=== PATIENT | female | born 1950 | race Caucasian/White ===

== ENCOUNTER 2020-04-04 14:47 | Inpatient (IN) | payer MEDICARE ==
[~2020-04-04] VITALS: Ht 157.5 cm; Wt 63.1 kg
--- NOTE | ~2020-04-04 | EMS ---
[address] [place] [address] EMS Patient Care Report Name: PRAVEEN FERRELL Room: [place] [address] ADM IN [facility]#: [id number] Admission: 04/04/20 Attend Phys: Lawrence Petty Discharge: Date of : 48 Report #: [id number] THIS REPORT FOR: //name// Report Transmitted: 04/04/2020 18:39 EMS Care Summary [facility] Incident [id number] @ 04/04/2020 13:51 Incident Location [address] [place] [address] Patient Praveen Ferrell Female, 69 Years 1950 Patient Address [id number] [place] [address] Patient History Chronic Kidney Disease,Anemia, unspecified, Patient Allergies No known allergies, Patient Medications Lipitor, Chief Complaint Pain Disposition Transported No Lights/[place] Dispatch Reason Falls Transported To [facility] Narrative [facility] 311 dispatched from [facility] for a fall. AOS, IFD on scene outside the residence. Patient contact had not been made. Garage code provided to IFD was not working. IFD even changed the battery on code box with no change. Front door was locked with a back door noted and locked. Windows were [address] [address] EMS Patient Care Report Name: PRAVEEN FERRELL Room: [address] IN [facility]#: [id number] Admission: 04/04/20 Attend Phys: aLwrence Petty Discharge: Date of : 48 Report #: [id number] surveyed with no accessible entry and inability to remove screen door from windows. EMS surveyed the area and peered inside the residence with no patient noted from the outside. Through looking through the windows, residence was noted to be unkempt with clutter and boxes piled to all window levels and no clear path. Delay on scene due to lockout. IFD was able to make entry into residence via removing the door knob and using special tools to unlock the bolt from the outside by going through the removed knob. Once entry was made, patient contact was made. Upon patient contact, patient was noted to be on the floor on her right lateral side, wedged between the bed and a large pile of clutter. Clutter went from wall to wall and almost to the ceiling leaving approximately 1 foot of space between the bed and clutter in room; this was the location of the patient wedged in that 1 foot of space. Patient reported passing out when she stood up from the bed to go to the bathroom and unable to get back up. Patient denied hitting her head and denied being on blood thinners at this time. Patient reported tailbone pain at a 5 and described as dull without radiation, numbness, tingling. Patient was attempted to be assisted to sit from location with patient LE to be noted to be stuck under the bed. Patient LE was repositioned as best as possible with difficulty due to limited space and clutter. Once repositioned, patient was assisted to transfer from right lateral position to sit to stand. Megamover was placed on the bed to aid in transferring patient to the cot outside. Patient was assisted to sit back on the bed once MEgamover was placed. Due to condition of house and limited space, all assessments were decided to be done outside the residence. Due to no clear pathways in the residence with cat feces noted throughout the residence floor. Patient location was in the upstairs bedroom; concern for patient and EMS safety if stairchair was used due to stairs disintegrating. It was decided to move patient via Megamover. Patient was moved via Megamover down the steps with edge of steps noted to be crumbling under EMS feet. Once outside the residence and to the cot, Megamover with patient was placed on the cot; seatbelts x4 were applied for patient safety. Patient had personal belongings of a bag that was placed on the back of the cot. Cot was moved to the unit where it was loaded and locked. In unit, initial vitals as charted with 4 lead showing possible elevation. Due to report of syncope and 4 lead, 12 lead was done showing sinus tachycardia with need to repeat due to artifact. Further information was obtained. Patient reported that she had been having syncopal episodes for 2 years and stated it was attributed to low BP. Patient reported her normal bP to be around 90 systolic. Patient reported she used to take warfarin but stopped last week per doctor order. Patient reported that she is supposed to have daily "saline infusions for dehydration" but stated that she had not had one in over a week. Per patient, [facility]NA was to do them but came out "once and never came back". Per patient, she stated that the reason she was told was the "condition of the house". Patient refused IV access. Patient medications and medical history was reviewed with patient. Patient initially requested transport to [place] and then [facility] with both facilities being high volume. EMS advised patient of implications of high volume status and patient agreed to transport to a different facility. Transport initiated. En route, patient [facility] [address] [place] [address] EMS Patient Care Report Name: PRAVEEN FERRELL Room: [address] IN [facility]#: [id number] Admission: 04/04/20 Attend Phys: Lawrence Petty Discharge: Date of : 48 Report #: [id number] vitals were monitored as charted. Patient had no noted change of condition and denied onset of new symptoms en route. patient denied change in current symptoms and denied change in pain quality, rate, or location. Patient comfort was attended to with position and temperature changes as requested. At destination, patient was removed from the monitor due to stability. Sole Molder Halina witnessed patient sign EMS consent to transport and treat. Cot was unlocked, unloaded, and moved to the ER. In ER, patient was transferred from EMS cot to hospital bed. Patient personal belongings of a bag was placed on side table with patient acknowledgement. Verbal report was given. Transfer of care complete. Initial Vitals @14:43Pain: 08/12, @14:18Pain: 08/12, @14:22SpO2: 96, @14:34SpO2: 96, @14:43SpO2: 96, @14:24 @14:25 @14:22P: 105,R: 16,BP: 108/72,Revised Trauma: 8, @14:34P: 101,R: 16,BP: 86/55,Revised Trauma: 7, @14:43P: 95,R: 16,BP: 94/61,Revised Trauma: 8, @14:22GCS: 15, @14:34GCS: 15, @14:43GCS: 15, @14:16 @14:26Glucose: 189, Assessments @14:16MENTAL:SKIN:HEENT:LUNG SOUNDS:ABDOMEN:PELVIS//GI:EXTREMITIES:PULSE:NEURO: Impression Syncope / Fainting Procedures @14:2412-Lead ECGResponse: UnchangedSucceeded@14:2512-Lead ECGResponse: UnchangedSucceeded Timeline 13:51,Call Received 13:51,Dispatch Notified 13:51,Psap Call 13:51,Dispatched 13:51,En Route 14:01,[place] [address] EMS Patient Care Report Name: PRAVEEN FERRELL Harjit Room: [address] IN [facility]#: [id number] Admission: 04/04/20 Attend Phys: Lawrence Petty Discharge: Date of : 48 Report #: [id number] 14:16,At Patient 14:16,BP: / M,PULSE: ,RR: R,SPO2: Ox,ETCO2: ,BG: ,PAIN: ,GCS: , 14:18,BP: / M,PULSE: ,RR: R,SPO2: Ox,ETCO2: ,BG: ,PAIN: 5,GCS: , 14:22,BP: / M,PULSE: ,RR: R,SPO2: 96 Ox,ETCO2: ,BG: ,PAIN: ,GCS: , 14:22,BP: 108/72 M,PULSE: 105,RR: 16 R,SPO2: Ox,ETCO2: ,BG: ,PAIN: ,GCS: , 14:22,BP: / M,PULSE: ,RR: R,SPO2: Ox,ETCO2: ,BG: ,PAIN: ,GCS: 15, 14:24,12-Lead ECG,Response: UnchangedSucceeded, 14:24,BP: / M,PULSE: ,RR: R,SPO2: Ox,ETCO2: ,BG: ,PAIN: ,GCS: , 14:25,12-Lead ECG,Response: UnchangedSucceeded, 14:25,BP: / M,PULSE: ,RR: R,SPO2: Ox,ETCO2: ,BG: ,PAIN: ,GCS: , 14:26,BP: / M,PULSE: ,RR: R,SPO2: Ox,ETCO2: ,B,PAIN: ,GCS: , 14:29,Depart Scene 14:34,BP: / M,PULSE: ,RR: R,SPO2: 96 Ox,ETCO2: ,BG: ,PAIN: ,GCS: , 14:34,BP: 86/55 M,PULSE: 101,RR: 16 R,SPO2: Ox,ETCO2: ,BG: ,PAIN: ,GCS: , 14:34,BP: / M,PULSE: ,RR: R,SPO2: Ox,ETCO2: ,BG: ,PAIN: ,GCS: 15, 14:43,BP: / M,PULSE: ,RR: R,SPO2: Ox,ETCO2: ,BG: ,PAIN: 5,GCS: , 14:43,BP: / M,PULSE: ,RR: R,SPO2: 96 Ox,ETCO2: ,BG: ,PAIN: ,GCS: , 14:43,BP: 94/61 M,PULSE: 95,RR: 16 R,SPO2: Ox,ETCO2: ,BG: ,PAIN: ,GCS: , 14:43,BP: / M,PULSE: ,RR: R,SPO2: Ox,ETCO2: ,BG: ,PAIN: ,GCS: 15, 14:44,At Destination 14:59,Call Closed Disclaimer v1.1 Copyright 2020 [employer] This EMS Care Summary contains data elements from the applicable legal record (which may be displayed differently). It is designed to provide pertinent information for the following purposes: continuity of care, clinical quality, and state data reporting. The complete legal record is available to ED staff and administrators of the receiving hospital in [facility]'s Patient Tracker. All data is provided "as is."
--- NOTE | ~2020-04-04 | CON ---
[address] [address] CONSULTATION Name: PRAVEEN FERRELL Room: [address] IN ..#: [id number] Admission: 04/04/20 Attend Phys: Lawrence Petty Discharge: Date of : 48 Report #: [id number] THIS REPORT FOR: cc: Renetta Robledo MD, Grace MD ~ Eliel Hernandez MD DATE OF SERVICE: 04/05/2020 REQUESTING PHYSICIAN: Dillon Norwood DO REASON FOR CONSULTATION: Acute kidney injury. HISTORY OF PRESENT ILLNESS: The patient is a very pleasant 69-year-old female known to me. I have seen her for the same problem in the past. She has ileostomy and is getting volume depleted very easily. I have seen her at [facility]. She needs chronic IV fluids. She needs probably 3-4 times at least a liter of saline overnight and last time when I saw her that I was set up, but apparently nurses when they came to the home they found that the conditions were not sedentary for IV infusion, so they did not do it. She presents with volume depletion. Creatinine was 6.4 on admission. Again, getting IV fluids and is improving down to 4.8. PAST MEDICAL HISTORY: Multiple admissions for dehydration, acute kidney injury due to ileostomy, history of syncopal episodes. SOCIAL HISTORY: No tobacco, no alcohol abuse. FAMILY HISTORY: Noncontributory. MEDICATIONS: Reviewed. PHYSICAL EXAMINATION: GENERAL: Awake, alert, oriented. VITAL SIGNS: Blood pressure reviewed is in the lower side, not febrile. HEENT: Pupils round. NECK: Supple. LUNGS: Clear. CARDIOVASCULAR: Regular rate. ABDOMEN: Soft. EXTREMITIES: She has ileostomy. ASSESSMENT: 1. Acute kidney injury due to volume depletion due to ileostomy and severe [facility] [address] [place] [address] CONSULTATION Name: PRAVEEN FERRELL Room: [address] IN [facility]#: [id number] Admission: 04/04/20 Attend Phys: Lawrence Petty Discharge: Date of : 48 Report #: [id number] diarrhea ____. 2. Deconditioning. PLAN: 1. Continue IV fluids. 2. Provide optimal care to this patient. She will need to be placed in a [place] [facility] [place] and she will need to have 3-4 times a week saline infused overnight, maybe even she will require infusion 5 times a week. By: [id number] Hernandez MD /RENUKA
[2020-04-04 14:52] VITALS: BP 120/63
[2020-04-04] MEDS ORDERED: MIDODRINE HCL 55 M1 PO (14:59)
[2020-04-04] MEDS ORDERED: LIPITOR40 MG PO ×2 (14:59→15:16)
[2020-04-04] MEDS ORDERED: FLORINEF ACETA0.1 MG PO (15:12)
[2020-04-04] MEDS ORDERED: JANTOVEN1 MG PO ×2 (15:13→15:14)
[2020-04-04 15:41] LABS: ABSOLUTE LYMPHOCYTES 0.9 thou/uL (0.8-5.3); ABSOLUTE MONOCYTES 0.9 thou/uL (0.0-1.2); ABSOLUTE NEUTROPHILS 6.3 thou/uL (1.6-8.1); BASOPHILS 0.6 %; EOSINOPHILS 0.2 %; HEMATOCRIT 42.4 % (37.0-47.0); HEMOGLOBIN 14.5 gm/dL (12.0-15.0); LYMPHOCYTES 11.1 %; MCH 31.5 pg (26.0-34.0); MCHC 34.2 g/dL (28.0-37.0); MCV 92.2 fL (80.0-100.0); MONOCYTES 11.4 %; MPV 9.8 fl. (7.2-11.1); NUCLEATED RBCS 0 /100WBC; PLATELET COUNT* 209 thou/uL (150-400); POLYS 76.7 %; RDW-CV 13.5 % (10.5-14.5); WBC 8.2 thou/uL (4.0-11.0)
[2020-04-04 15:59] LABS: CALCIUM 9.1 mg/dL (8.5-10.1); CREATININE 6.4 mg/dL (0.6-1.3); POTASSIUM 5.2 mmol/L (3.5-5.1)
[2020-04-04 16:03] LABS: ALBUMIN 4.2 g/dL (3.4-5.0); TOTAL BILIRUBIN 1.3 mg/dL (<0.1-1.0); TOTAL PROTEIN 9.2 g/dL (6.4-8.2)
--- NOTE | 2020-04-04 16:30 | EKG ---
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: [facility] : 1950 Requested By: Ford Chu Order Number: [id number] MD: Andrew Hanson Measurements Intervals [place] Rate: 97 P: 74 UT: 149 QRS: -57 QRSD: 89 T: 72 QT: 360 QTc: 458 Interpretive Statements Sinus rhythm Abnormal R-wave progression, late transition Inferior infarct, old No previous ECG available for comparison Electronically Signed On 04-04-2020 16:30:15 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
[2020-04-04 17:50] LABS: INR 1.1; PROTIME 11.8 Seconds (9.20-11.50)
[2020-04-04 19:27] VITALS: BP 91/43
[2020-04-04 20:51] VITALS: BP 102/51
[2020-04-04 21:08] VITALS: BP 106/47
[2020-04-04 21:34] LABS: CALCIUM 7.8 mg/dL (8.5-10.1); CREATININE 5.4 mg/dL (0.6-1.3); POTASSIUM 3.3 mmol/L (3.5-5.1)
[2020-04-04 21:37] LABS: MAGNESIUM 1.2 mg/dL (1.8-2.4); PHOSPHORUS* 7.7 mg/dL (2.5-4.9)
[2020-04-05 04:00] VITALS: BP 91/49
[2020-04-05 04:07] LABS: ABSOLUTE LYMPHOCYTES 1.1 thou/uL (0.8-5.3); ABSOLUTE MONOCYTES 0.9 thou/uL (0.0-1.2); ABSOLUTE NEUTROPHILS 4.5 thou/uL (1.6-8.1); BASOPHILS 0.5 %; EOSINOPHILS 0.7 %; HEMATOCRIT 33.6 % (37.0-47.0); LYMPHOCYTES 16.9 %; MCHC 33.3 g/dL (28.0-37.0); MONOCYTES 13.5 %; MPV 10.2 fl. (7.2-11.1); NUCLEATED RBCS 0 /100WBC; PLATELET COUNT* 151 thou/uL (150-400); POLYS 68.4 %; RBC 3.61 mil/uL (4.20-5.00); RDW-CV 13.4 % (10.5-14.5); WBC 6.6 thou/uL (4.0-11.0)
[2020-04-05 04:41] LABS: HEMOGLOBIN 11.2 gm/dL (12.0-15.0)
[2020-04-05 04:47] LABS: ALBUMIN 3.2 g/dL (3.4-5.0); CALCIUM 7.6 mg/dL (8.5-10.1); CREATININE 4.8 mg/dL (0.6-1.3); TOTAL BILIRUBIN 0.8 mg/dL (<0.1-1.0); TOTAL PROTEIN 6.9 g/dL (6.4-8.2)
[2020-04-05 08:00] VITALS: BP 99/47
[2020-04-05 12:00] VITALS: BP 96/59
[2020-04-05 17:05] VITALS: BP 94/52
[2020-04-05 20:00] VITALS: BP 103/59
[2020-04-06] VITALS (7 sets, daily range): BP systolic 91–153; BP diastolic 28–65
[2020-04-06 06:26] LABS: ABSOLUTE EOSINOPHILS 0.1 thou/uL (0.0-0.7); ABSOLUTE MONOCYTES 0.6 thou/uL (0.0-1.2); ABSOLUTE NEUTROPHILS 4.1 thou/uL (1.6-8.1); BASOPHILS 0.3 %; EOSINOPHILS 1.4 %; HEMATOCRIT 32.6 % (37.0-47.0); HEMOGLOBIN 10.9 gm/dL (12.0-15.0); LYMPHOCYTES 16.8 %; MCH 31.3 pg (26.0-34.0); MCHC 33.5 g/dL (28.0-37.0); MCV 93.3 fL (80.0-100.0); MONOCYTES 10.4 %; NUCLEATED RBCS 0 /100WBC; PLATELET COUNT* 133 thou/uL (150-400); POLYS 71.1 %; RBC 3.49 mil/uL (4.20-5.00); RDW-CV 13.3 % (10.5-14.5); WBC 5.7 thou/uL (4.0-11.0)
[2020-04-06 06:36] LABS: ANION GAP 5 mmol/L (7-16); BUN 79 mg/dL (7-18); CALCIUM 8.1 mg/dL (8.5-10.1); CHLORIDE 99 mmol/L (98-107); CO2 35 mmol/L (21-32); GLUCOSE 117 mg/dL (70-99); POTASSIUM 3.1 mmol/L (3.5-5.1); SODIUM 139 mmol/L (136-145)
[2020-04-06 06:41] LABS: CREATININE 2.9 mg/dL (0.6-1.3)
[2020-04-06 06:42] LABS: CALCIUM 8.1 mg/dL (8.5-10.1); POTASSIUM 3.2 mmol/L (3.5-5.1); TOTAL BILIRUBIN 0.7 mg/dL (<0.1-1.0); TOTAL PROTEIN 6.8 g/dL (6.4-8.2)
[2020-04-06 07:59] LABS: ESR (SEDRATE) 50 mm/hr (0-30)
[2020-04-07 02:55] VITALS: BP 119/61
[2020-04-07 05:00] LABS: HEMATOCRIT 30.1 % (37.0-47.0); MCH 31.4 pg (26.0-34.0); MCHC 33.2 g/dL (28.0-37.0); MCV 94.4 fL (80.0-100.0); MPV 10.4 fl. (7.2-11.1); RBC 3.19 mil/uL (4.20-5.00); RDW-CV 13.3 % (10.5-14.5); WBC 5.3 thou/uL (4.0-11.0)
[2020-04-07 05:33] LABS: CALCIUM 7.8 mg/dL (8.5-10.1); CREATININE 2.2 mg/dL (0.6-1.3); POTASSIUM 3.6 mmol/L (3.5-5.1)
--- NOTE | 2020-04-07 05:35 | CON ---
[facility] [address] [place] [address] CONSULTATION Name: PRAVEEN FERRELL Room: [address] IN [facility]#: [id number] Admission: 04/04/20 Attend Phys: Lawrence Petty Discharge: Date of : 48 Report #: [id number] THIS REPORT FOR: cc: Renetta Robledo MD, Grace MD ~ Syed Camarillo DO DATE OF SERVICE: 04/05/2020 REASON FOR CONSULTATION: Recurrent dehydration from high output ileostomy. IMPRESSION: 1. Recurrent dehydration secondary to high ileostomy output. 2. Status post extensive gastrointestinal surgery including removal of a large portion of her distal small bowel, plus right hemicolectomy with an end ileostomy for Crohn's disease. 3. Acute renal failure, which is recurrent secondary to #1 above, requiring repeated admissions over the last [address] [facility], and now [facility]. 4. Metabolic abnormalities secondary to #1. 5. 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 6. Anemia of chronic disease, which is multifactorial. 7. Left ovarian cyst with need for further evaluation. RECOMMENDATIONS: 1. The patient needs to stay in the hospital over the weekend so that we can fully hydrate her so that her renal function will come back to baseline. 2. In the interim, we will consult the dietitian for TPN needs of the patient, which would benefit from nocturnal TPN that would not only meet her nutritional needs, but to keep her hydrated and prevent repeated admissions to the hospital for IV fluids and hydration. 3. We will also look into coverage for Gattex 0.05 mg/kg subcutaneous once daily for short gut syndrome. 4. If we can get her approved for nocturnal TPN, she would need to have a PowerPort placed by Radiology that would not only allow her to get TPN, but also allow her to get blood draws done through the same. This will need to be placed by Interventional Radiology. 5. We will also consult housing case manager to look into coverage for nocturnal TPN and Gattex subcutaneous injections. 6. We will also consult Dr. Theron Brambila to arrange for eventual surgical removal of her gastrostomy tube as it is not likely to close just removing the tube. 7. We will schedule the patient for a pelvic ultrasound to better evaluate this ovarian cyst, which has been longstanding [place] [address] CONSULTATION Name: PRAVEEN FERRELL Room: [address] IN [facility]#: [id number] Admission: 04/04/20 Attend Phys: Lawrence Petty Discharge: Date of : 48 Report #: [id number] 8. I have discussed the plans with the patient as well as she is agreeable to the same. HISTORY OF PRESENT ILLNESS: The patient is a 69-year-old white female who underwent surgery back about 2 years ago at [facility] because of perforation and had to have extensive surgery to remove a large portion of her small bowel and her right colon with an end ileostomy. Since that time by report and [facility] medical records, the pathology specimen was compatible with Crohn's disease. The patient has had problems with chronic diarrhea. She has had an end ileostomy and states she has been hospitalized up to 21 times since her surgery because of recurrent dehydration and high ileostomy output. She is afraid to have the ileostomy taken down and have it reconnected due to fear that she would have severe diarrhea. This certainly real given the fact that she probably has short gut syndrome. We do not have the operative report, but in records reviewed from [place], there was mention that close to 150 cm of her terminal ileum was removed as well as right colon. Looking at her CAT scan, she still has a transverse, descending and sigmoid colon. She has had repeated admissions to the hospital for dehydration from high ostomy output and she will have to change her bag 7-8 times a day and we will have either close to a pint or almost ____ fluid that is watery in nature. This is by the fact that she is not even eating. She comes into the hospital with dehydration and severe renal failure, then develops and gets a metabolically out of whack and because of that, she has some mental status changes, which eventually improved as she hydrates. She denies any complaints of any abdominal pain or any problems with bleeding. She has a gastrostomy tube in place as well because she was not eating, but she is no longer using this at all. She does not eat. She is concerned about leaving because she would have to just come back and I agree that this is a problem. This is most of her history. ALLERGIES: None. MEDICATIONS: Include Florinef, Lipitor, midodrine and she is no longer taking warfarin, she stopped it. PAST MEDICAL HISTORY: Orthostatic hypotension, hyperlipidemia. She had Crohn's disease. She had previous cholecystectomy, tubal ligation, has had extensive small bowel and colon surgery, as I mentioned above. SOCIAL HISTORY: The patient quit smoking. She does not drink any alcohol on a regular basis. FAMILY HISTORY: Negative. [address] [place] [address] CONSULTATION Name: PRAVEEN FERRELL Room: [address] IN [facility]#: [id number] Admission: 04/04/20 Attend Phys: Lawrence Petty Discharge: Date of : 48 Report #: [id number] PHYSICAL EXAMINATION: GENERAL: A 69-year-old white female who is ill-appearing. CARDIOPULMONARY: Revealed a regular rate and rhythm. LUNGS: Clear. ABDOMEN: Soft. She has an ileostomy with yellow material which is semi-formed. Her ileostomy appears to be healthy. She has a gastrostomy tube in place with the tube coiled up and not being used at all. LABORATORY DATA: Her lab tests from admission revealed a white count of 8.2, hemoglobin 14.5 and a platelet count 290,000. With hydration, her hemoglobin came down to 11.2. Her admitting sodium 134, potassium 3.3, chloride 90, bicarbonate 37. Her BUN was 110 and creatinine of 5.4. Today, her BUN and creatinine are 104 and 4.8 respectively. Her electrolytes are about the same. Her total bilirubin 0.8, alkaline phosphatase 92, AST 31, ALT 21. Her albumin is 3.2. In reviewing records from [facility], the patient underwent a full CT enterography in October of last year, which did not reveal any evidence for active Crohn's disease. There was a large ovarian cyst, which has been present for quite some time by the patient's report. DISCUSSION: At the present time, the patient has had recurrent issues with dehydration. She needs to stay in the hospital, get hydrated and we need to arrange for something to get done to help keep her from having these issues. I have discussed these plans with the patient as well and she is agreeable to the same. <ELECTRONICALLY SIGNED> By: Syed Camarillo DO 04/07/20 0535 1347 [id number] Camarillo DO /nt
[2020-04-07 11:22] VITALS: BP 119/61
[2020-04-07 17:10] VITALS: BP 147/76
[2020-04-07 20:00] VITALS: BP 108/48
[2020-04-08] VITALS: BP 103/50
[2020-04-08 03:57] VITALS: BP 101/52
[2020-04-08 05:08] LABS: HEMATOCRIT 28.1 % (37.0-47.0); HEMOGLOBIN 9.3 gm/dL (12.0-15.0); MCH 31.3 pg (26.0-34.0); MCHC 33.1 g/dL (28.0-37.0); MCV 94.4 fL (80.0-100.0); MPV 10.3 fl. (7.2-11.1); RBC 2.98 mil/uL (4.20-5.00); RDW-CV 13.1 % (10.5-14.5); WBC 5.4 thou/uL (4.0-11.0)
[2020-04-08 05:33] LABS: CALCIUM 8.1 mg/dL (8.5-10.1); CREATININE 1.7 mg/dL (0.6-1.3)
[2020-04-08 08:00] VITALS: BP 131/53
[2020-04-08 12:00] VITALS: BP 134/53
[2020-04-08 20:00] VITALS: BP 136/66
[2020-04-09 05:49] LABS: CALCIUM 8.6 mg/dL (8.5-10.1); CREATININE 1.4 mg/dL (0.6-1.3); POTASSIUM 3.9 mmol/L (3.5-5.1)
[2020-04-09 08:15] VITALS: BP 140/65
[2020-04-09 17:11] VITALS: BP 107/49
[2020-04-09 20:30] VITALS: BP 108/58
[2020-04-10 05:24] LABS: HEMATOCRIT 29.2 % (37.0-47.0); HEMOGLOBIN 9.6 gm/dL (12.0-15.0); MCH 30.9 pg (26.0-34.0); MCHC 32.9 g/dL (28.0-37.0); MPV 10.2 fl. (7.2-11.1); RBC 3.11 mil/uL (4.20-5.00); RDW-CV 13.2 % (10.5-14.5); WBC 4.8 thou/uL (4.0-11.0)
[2020-04-10 05:51] LABS: CALCIUM 8.4 mg/dL (8.5-10.1); CREATININE 1.6 mg/dL (0.6-1.3); POTASSIUM 3.8 mmol/L (3.5-5.1)
[2020-04-10 07:55] VITALS: BP 101/57
[2020-04-10 15:34] VITALS: BP 121/52
[2020-04-10 20:00] VITALS: BP 113/77
[2020-04-11 05:21] LABS: HEMATOCRIT 28.1 % (37.0-47.0); HEMOGLOBIN 9.4 gm/dL (12.0-15.0); MCH 31.4 pg (26.0-34.0); MCHC 33.3 g/dL (28.0-37.0); MCV 94.5 fL (80.0-100.0); MPV 10.2 fl. (7.2-11.1); RBC 2.98 mil/uL (4.20-5.00); RDW-CV 13.2 % (10.5-14.5); WBC 4.7 thou/uL (4.0-11.0)
[2020-04-11 05:37] LABS: CALCIUM 8.2 mg/dL (8.5-10.1); CREATININE 1.5 mg/dL (0.6-1.3); POTASSIUM 3.7 mmol/L (3.5-5.1)
[2020-04-11 08:30] VITALS: BP 95/48
[2020-04-11] MEDS ORDERED: NYAMYC15 GM TOP (09:32)
[2020-04-11 16:18] VITALS: BP 116/52
[2020-04-11 20:00] VITALS: BP 116/60
[2020-04-12 07:44] VITALS: BP 135/39
[2020-04-12 13:00] VITALS: BP 118/67
[2020-04-12 14:00] VITALS: BP 106/61
[2020-04-12 20:00] VITALS: BP 108/32
[2020-04-13 07:20] VITALS: BP 92/48
[2020-04-13 16:00] VITALS: BP 107/52
[2020-04-13 20:00] VITALS: BP 127/58
[2020-04-14 07:04] LABS: ABSOLUTE EOSINOPHILS 0.1 thou/uL (0.0-0.7); ABSOLUTE LYMPHOCYTES 0.9 thou/uL (0.8-5.3); ABSOLUTE MONOCYTES 0.5 thou/uL (0.0-1.2); BASOPHILS 0.9 %; EOSINOPHILS 2.1 %; HEMATOCRIT 28.7 % (37.0-47.0); HEMOGLOBIN 9.4 gm/dL (12.0-15.0); LYMPHOCYTES 19.9 %; MCH 31.1 pg (26.0-34.0); MCHC 32.7 g/dL (28.0-37.0); MONOCYTES 10.9 %; MPV 10.3 fl. (7.2-11.1); NUCLEATED RBCS 0 /100WBC; PLATELET COUNT* 121 thou/uL (150-400); POLYS 66.2 %; RBC 3.02 mil/uL (4.20-5.00); RDW-CV 12.9 % (10.5-14.5); WBC 4.6 thou/uL (4.0-11.0)
[2020-04-14 07:30] VITALS: BP 91/35
[2020-04-14 08:04] LABS: ALBUMIN 2.5 g/dL (3.4-5.0); CALCIUM 8.8 mg/dL (8.5-10.1); CREATININE 1.3 mg/dL (0.6-1.3); POTASSIUM 4.2 mmol/L (3.5-5.1); TOTAL BILIRUBIN 0.3 mg/dL (<0.1-1.0); TOTAL PROTEIN 6.1 g/dL (6.4-8.2)
[2020-04-14 12:44] VITALS: BP 100/31
[2020-04-14 16:29] VITALS: BP 108/45
[2020-04-15 07:45] VITALS: BP 96/32
[2020-04-15 17:13] VITALS: BP 98/42
[2020-04-15 20:00] VITALS: BP 100/51
[2020-04-16 04:31] LABS: ABSOLUTE EOSINOPHILS 0.1 thou/uL (0.0-0.7); ABSOLUTE LYMPHOCYTES 0.8 thou/uL (0.8-5.3); ABSOLUTE MONOCYTES 0.4 thou/uL (0.0-1.2); ABSOLUTE NEUTROPHILS 2.9 thou/uL (1.6-8.1); BASOPHILS 1.1 %; EOSINOPHILS 1.6 %; HEMATOCRIT 24.5 % (37.0-47.0); HEMOGLOBIN 8.1 gm/dL (12.0-15.0); MCH 32.1 pg (26.0-34.0); MCHC 33.3 g/dL (28.0-37.0); MCV 96.7 fL (80.0-100.0); MONOCYTES 10.5 %; MPV 10.5 fl. (7.2-11.1); NUCLEATED RBCS 0 /100WBC; PLATELET COUNT* 107 thou/uL (150-400); POLYS 68.8 %; RBC 2.53 mil/uL (4.20-5.00); RDW-CV 13.5 % (10.5-14.5); WBC 4.2 thou/uL (4.0-11.0)
[2020-04-16 04:41] LABS: CALCIUM 8.1 mg/dL (8.5-10.1); CREATININE 1.1 mg/dL (0.6-1.3); POTASSIUM 5.2 mmol/L (3.5-5.1); TOTAL BILIRUBIN 0.2 mg/dL (<0.1-1.0); TOTAL PROTEIN 5.1 g/dL (6.4-8.2)
[2020-04-16 07:39] VITALS: BP 109/49
[2020-04-16] MEDS ORDERED: LIPITOR 40 MG T40 M1 PO (11:25)
[2020-04-16] MEDS ORDERED: MIDODRINE HCL 55 M1 PO (11:25)
[2020-04-16 12:49] VITALS: BP 101/35
[2020-04-16 16:00] VITALS: BP 115/57
[2020-04-16 20:00] VITALS: BP 122/62
[2020-04-17 07:39] VITALS: BP 109/49
[2020-04-17 09:01] LABS: ABSOLUTE EOSINOPHILS 0.1 thou/uL (0.0-0.7); ABSOLUTE LYMPHOCYTES 0.4 thou/uL (0.8-5.3); ABSOLUTE MONOCYTES 0.3 thou/uL (0.0-1.2); ABSOLUTE NEUTROPHILS 2.9 thou/uL (1.6-8.1); BASOPHILS 0.8 %; EOSINOPHILS 1.5 %; HEMATOCRIT 24.9 % (37.0-47.0); HEMOGLOBIN 8.1 gm/dL (12.0-15.0); LYMPHOCYTES 11.5 %; MCH 30.9 pg (26.0-34.0); MCHC 32.6 g/dL (28.0-37.0); MCV 94.9 fL (80.0-100.0); MONOCYTES 8.2 %; MPV 10.3 fl. (7.2-11.1); NUCLEATED RBCS 0 /100WBC; PLATELET COUNT* 108 thou/uL (150-400); RBC 2.63 mil/uL (4.20-5.00); RDW-CV 13.6 % (10.5-14.5); WBC 3.7 thou/uL (4.0-11.0)
[2020-04-17 09:10] LABS: ALBUMIN 2.1 g/dL (3.4-5.0); CALCIUM 8.3 mg/dL (8.5-10.1); CREATININE 1.1 mg/dL (0.6-1.3); POTASSIUM 4.3 mmol/L (3.5-5.1); TOTAL BILIRUBIN 0.2 mg/dL (<0.1-1.0); TOTAL PROTEIN 5.3 g/dL (6.4-8.2)
[2020-04-17 12:31] VITALS: BP 94/45
[2020-04-17 16:30] VITALS: BP 107/55
[2020-04-17 21:00] VITALS: BP 99/51
[2020-04-18 06:04] LABS: INR 1.1; PROTIME 11.2 Seconds (9.20-11.50)
[2020-04-18 07:50] VITALS: BP 88/45
[2020-04-18 17:30] VITALS: BP 111/44
[2020-04-18 20:30] VITALS: BP 115/62
[2020-04-19 05:19] LABS: INR 1.1; PROTIME 11.2 Seconds (9.20-11.50)
[2020-04-19 08:30] VITALS: BP 117/62
[2020-04-19 12:45] VITALS: BP 117/62
[2020-04-19 12:58] VITALS: BP 117/62
[2020-04-19 13:47] VITALS: BP 117/62
[2020-04-19 16:58] VITALS: BP 117/62
== END 2020-04-19 16:35 | disposition home health service (06) | DRG 391 ==
LOC: M.ERS 14:47 → M.2W 17:25 → M.TBA-ER 17:25 → M.3W 17:25 → M.2W 19:48 → M.3W 04-08 17:04
PROVIDERS: Emergency Medicine Emergency Medical Services; Family Medicine; Internal Medicine; Internal Medicine Gastroenterology; Internal Medicine Nephrology; ADMIT Internal Medicine; ATTEND Internal Medicine
DX: K91.2 Postsurgical malabsorption, not elsewhere classified (principal); N17.0 Acute kidney failure with tubular necrosis; E43 Unspecified severe protein-calorie malnutrition; K50.90 Crohn's disease, unspecified, without complications; E87.1 Hypo-osmolality and hyponatremia; E86.0 Dehydration; E78.5 Hyperlipidemia, unspecified; Z20.822 Contact with and (suspected) exposure to COVID-19; E87.5 Hyperkalemia; E86.9 Volume depletion, unspecified; D63.8 Anemia in other chronic diseases classified elsewhere; N83.202 Unspecified ovarian cyst, left side; E87.8 Other disorders of electrolyte and fluid balance, not elsewhere classified; Z79.82 Long term (current) use of aspirin; Z90.49 Acquired absence of other specified parts of digestive tract; Z79.899 Other long term (current) drug therapy; Z79.01 Long term (current) use of anticoagulants; Z93.2 Ileostomy status; Z68.25 Body mass index [BMI] 25.0-25.9, adult